=== PATIENT | female | born 1950 | race Caucasian/White ===

== ENCOUNTER 2017-09-12 14:28 | Observation (INO) | payer MEDICARE, BC ==
[2017-09-12] MEDS ORDERED: NS 0.9% 1000 ML* 1,000 ML IV ONE (14:33)
--- NOTE | 2017-09-12 14:47 | RAD ---
HISTORY: Neurological changes, code hameed. COMPARISONS: None TECHNIQUE: Multiple contiguous axial CT scans were obtained of the head without intravenous contrast. FINDINGS: HEMORRHAGE/INFARCT: There is no hemorrhage or acute infarct. MASSES/SHIFT: There is no mass or shift. EXTRA-AXIAL SPACES: There are no extra-axial fluid collections. SULCI AND VENTRICLES: The sulci and ventricles are normal in size and position for the patient's stated age. CEREBRUM: There are no focal parenchymal abnormalities. BRAINSTEM: There are no focal parenchymal abnormalities. CEREBELLUM: There are no focal parenchymal abnormalities. VESSELS: The vessels are grossly normal. PARANASAL SINUSES: The paranasal sinuses are clear. ORBITS: The orbits are unremarkable. BONES AND SOFT TISSUE: No bone or soft tissue abnormalities are noted. OTHER: None IMPRESSION: NO ACUTE INTRACRANIAL PATHOLOGY. PRELIMINARY FINDINGS WERE DISCUSSED WITH DR. LIANG IN THE EMERGENCY DEPARTMENT AT APPROXIMATELY 2:43 PM ON SEPTEMBER 12, 2017.
[2017-09-12] MEDS ORDERED: Alteplase* 100 MG VIAL ONE (14:57)
[2017-09-12 15:03] LABS: ABS Basophils 0 10^3/ul (0-0.2); ABS Eosinophils 0.1 10^3/ul (0-0.6); ABS Lymphocytes 0.9 10^3/ul (1.0-4.8); ABS Monocytes 0.4 10^3/ul (0-0.8); ABS Neutrophils 2.6 10^3/ul (1.5-7.7); ABS Nucleated RBC 0 10^3/ul; Eosinophil % 1.4 % (0-6); Hematocrit 43 % (35-47); Hemoglobin 14.5 g/dl (12.0-16.0); Lymphocyte % 23.2 % (25-47); Mean Corpuscular HGB Conc 34 g/dl (31-36); Mean Corpuscular Hemoglobin 30 pg (27-31); Mean Corpuscular Volume 90 fL (80-97); Mean Platelet Volume 9.3 um3 (7.4-10.4); Nucleated Red Blood Cells % 0; Platelet Count 163 10^3/ul (150-450); Red Blood Count 4.76 10^6/ul (4.0-5.4); Red Cell Distribution Width 13 % (10.5-15)
[2017-09-12 15:12] LABS: INR 0.94 (0.77-1.02)
[2017-09-12] MEDS ORDERED: Aspirin TAB* 325 MG PO ONE (15:13)
--- NOTE | 2017-09-12 15:28 | RAD ---
Indication: Neurologic changes. Single frontal view of the chest performed at 1515 hours was reviewed. Comparison is made with previous exam dated September 25, 2015. No mediastinal shift is noted. Heart is of normal size and configuration. Lung alaniz appear clear. IMPRESSION: NO ACTIVE CARDIOPULMONARY DISEASE IS NOTED.
[2017-09-12 15:33] LABS: Urine Appearance Clear; Urine Blood Negative (Negative); Urine Color Straw; Urine Ketones Trace (Negative); Urine Protein Negative (Negative); Urine Specific Gravity 1.008 (1.010-1.030); Urine Urobilinogen Negative (Negative)
--- NOTE | 2017-09-12 16:05 | RAD ---
HISTORY: Confusion, weakness, memory loss COMPARISONS: Head CT dated September 12, 2017 TECHNIQUE: The following sequences were obtained of the head: Sagittal T1-weighted images, axial T2-weighted images, axial FLAIR images, axial susceptibility weighted images, axial T1-weighted images. Additionally, axial diffusion-weighted images were obtained with calculated apparent diffusion coefficients. FINDINGS: HEMORRHAGE/INFARCT: There is no hemorrhage or acute infarct. MASSES/SHIFT: There is no mass or shift. EXTRA-AXIAL SPACES/MENINGES: There are no extra-axial fluid collections. SULCI AND VENTRICLES: The sulci and ventricles are normal in size and position for the patient's stated age. CEREBRUM: There are no focal parenchymal abnormalities. BRAINSTEM: There are no focal parenchymal abnormalities. CEREBELLUM: There are no focal parenchymal abnormalities. The cerebellar tonsils are normal in size and position. SELLA: The sella is normal. PINEAL: The pineal region is clear. CP ANGLE/TEMPORAL BONES: The labyrinthine structures are grossly normal. VESSELS: Normal flow-voids are noted within the visualized vertebral vasculature. DIFFUSION ABNORMALITIES: There are no diffusion abnormalities. PARANASAL SINUSES/MASTOIDS: There is a small mucous retention cyst of the left maxillary sinus. ORBITS: The orbits are unremarkable. BONES AND SOFT TISSUE: No bone or soft tissue abnormalities are noted. OTHER: None IMPRESSION: NORMAL BRAIN
[2017-09-12] MEDS ORDERED: Ondansetron INJ* 2 MG/ML VIAL IV PRN (16:22)
[2017-09-12] MEDS ORDERED: Acetaminophen TAB* 325 MG PO PRN (16:22)
[2017-09-12] MEDS ORDERED: Aspirin 81 mg CHEW TAB* 81 MG TAB.CHEW ONE (17:54)
--- NOTE | 2017-09-12 17:58 | ECHO ---
Patient: RD YOUNG [facility] Rec#: [id number] : 1950 Date: 09/12/2017 Age: 67y Height: 165.1 cm / 65.0 in Weight: 58.97 kg / 130.0 lbs Sex: F BSA: 1.65 Room#: -14 Admit Date#: 09/12/2017 Type: Inpatient Referring: Khoi Tolbert Reading: Jayant Neal MD Airplane Pilot Crop Dusting: Lorraine Collazo RDCS CC: Thu Pascual MD Transthoracic Echocardiogram Indication: TIA, amnesia BP: 151/75 HR: 63 Rhythm: NSR with PVCs Findings History: No known history. Technical Comments: The study quality is fair. Completed at 1730. Left Ventricle: The left ventricular chamber size is normal. There is no left ventricular hypertrophy. Global left ventricular wall motion and contractility are within normal limits. There is normal left ventricular systolic function. The estimated ejection fraction is 55-60%. There is no consistent Doppler evidence of clinically significant diastolic dysfunction. Left Atrium: The left atrium is mild to moderately dilated. Right Ventricle: The right ventricular cavity size is normal. The right ventricular global systolic function is normal. Right Atrium: The right atrium is mildly dilated. Interatrial septum appears intact without evidence of shunting. The bubble study is negative. A patent foramen ovale is not demonstrated with color Doppler and agitated contrast. Aortic Valve: The aortic valve is trileaflet. There is no evidence of aortic valve thickening. There is a trace of aortic regurgitation. There is no evidence of aortic stenosis. Mitral Valve: The mitral valve leaflets do not appear thickened. There is trace to mild mitral regurgitation. There is no evidence of mitral stenosis. Tricuspid Valve: The tricuspid valve leaflets are normal. There is trace to mild tricuspid regurgitation. The right ventricular systolic pressure is estimated at 26 mmHg. No pulmonary hypertension is noted. There is no tricuspid stenosis. Pulmonic Valve: The pulmonic valve appears normal. There is mild pulmonic regurgitation. There is no pulmonic stenosis. Pericardium: There is no significant pericardial effusion. A pericardial fat pad is visualized. Aorta: There is mild dilatation of the ascending aorta. There is no dilatation of the aortic arch. The aortic root is normal in size. Pulmonary Artery: The main pulmonary artery appears normal. Venous: The inferior vena cava appears normal in size. There is a greater than 50% respiratory change in the inferior vena cava dimension. Contrast: Normal saline was used as contrast for the bubble study. Images 1 and 2. Intravenous contrast was used to help determine presence of intracardiac shunting. Summary: There was not any prior study for comparison. Conclusions The estimated ejection fraction is 55-60%. There is normal left ventricular systolic function. The right atrium is mildly dilated. A patent foramen ovale is not demonstrated with color Doppler and agitated contrast. There is trace to mild mitral regurgitation. There is trace to mild tricuspid regurgitation. There is mild pulmonic regurgitation. Measurements Name Value Normal Range RVIDd (AP) 2D 2.7 cm (0.9 - 2.6) RVDdMajor (2D) 3.7 cm (2.2 - 4.4) RAd ISD 4CH 5 cm (3.4 - 4.9) RA (A4C)W 4.1 cm (2.9 - 4.6) IVSd (2D) 0.6 cm (0.6 - 1) LVPWd (2D) 0.7 cm (0.6 - 1) LVIDd (2D) 4.7 cm (3.6 - 5.4) LVIDs (2D) 3.7 cm - LV FS (2D) 21 % (25 - 45) Aortic Annulus 1.8 cm (1.4 - 2.6) Ao root diameter (2D) 3.2 cm (2.1 - 3.5) Ascending Ao 3.6 cm (2.1 - 3.4) Aortic arch 2.9 cm (1.8 - 3.4) LA dimension (AP) 2D 3.2 cm (2.3 - 3.8) LAd ISD 4CH 5.1 cm (2.9 - 5.3) LA ISD 4CH W 4.6 cm (2.5 - 4.5) Name Value Normal Range LA ESV SP 4CH (A/L) 65 ml - LA ESV SP 2CH (A/L) 55 ml - LA ESV BP (A/L) 70 ml - LA ESV BP (A/L) index 42 ml/m2 - LA ESV SP 4CH (MOD) 59 ml - LA ESV SP 2CH (MOD) 54 ml - Name Value Normal Range MV E-wave Vmax 0.63 m/sec - MV deceleration time 210.1 msec - MV A-wave Vmax 0.79 m/sec - MV E:A ratio 0.8 ratio - LV septal e' Vmax 0.07 m/sec - LV lateral e' Vmax 0.13 m/sec - LV E:e' septal ratio 9 ratio - LV E:e' lateral ratio 4.85 ratio - Name Value Normal Range AV Vmax 1.43 m/sec - AV VTI 30.96 cm - AV peak gradient 8.2 mmHg - AV mean gradient 4.52 mmHg - LVOT Vmax 1.3 m/sec - LVOT VTI 31.45 cm - LVOT peak gradient 6.64 mmHg - LVOT mean gradient 3.72 mmHg - RADHA Vmax 0.74 m/sec - Name Value Normal Range TR Vmax 2.4 m/sec - TR peak gradient 23 mmHg - RAP 3 mmHg - RVSP 26 mmHg - IVC diameter 2 cm - Name Value Normal Range PV Vmax 0.75 m/sec - PV peak gradient 2.25 mmHg - NY end-diastolic Vmax 0.92 m/sec -
--- NOTE | 2017-09-12 18:22 | CONS ---
CONSULTATION REPORT: DATE OF CONSULT: 09/12/17 PATIENT OF: Dr. Araiza and Dr. Thu Pascual and Dr. Kaiser Alonzo in the ER. HISTORY OF PRESENT ILLNESS: This is a 67-year-old healthy woman who is visiting her at [facility] today when she developed short-term memory loss and was brought to the emergency room. I saw her initially at 3 o'clock and this happened as early as about 10 when she showed up to [facility]. There has not been an issue with difficulty with word finding or speech or fluency, but the issue is of short- term memory with long-term memory intact. It is unclear whether it is improving at this point or not, but there are some subtle signs that it might be. She has had no prior strokes. PAST MEDICAL HISTORY: She is in good general health other than osteoporosis. PAST SURGICAL HISTORY: She has no known surgeries. MEDICATIONS: She is on: 1. Calcium. 2. Alendronate. We do not know the dose currently. ALLERGIES: She has no clear allergies. SOCIAL HISTORY: She does not smoke, drink, or take drugs. She lives by herself at this point. REVIEW OF SYSTEMS: Negative in all 14 spheres, but is somewhat limited because she would remember things from prior days, but not necessarily this afternoon or earlier today. PHYSICAL EXAMINATION: On exam, temperature 98.4, pulse 71, respirations 17, blood pressure 151/75. She is alert. She knows she is in the hospital. She recognized me through my taking care of her . She knew my name. She knew the date; however, she had 0/3 memory at 5 minutes and when I was telling her about transient global amnesia, she had good understanding and comprehension of what I was telling her and asked appropriate questions, but then she would immediately ask, she did not recall me talking about transient global amnesia. She could follow 3-step commands. When I came back into the room, she did not initially remember seeing me, but then later on she remembered to the hospitalist that she had seen me, so her memory seems to be possibly improving. Cranial nerves II through XII were intact. Fundi were benign. Motor exam revealed normal tone, strength, and coordination. Sensation intact to light touch. Reflexes were 1+ and equal downgoing toes. Neck was suppler. Chest: Clear. Cardiovascular: Regular rate and rhythm. Abdomen: Soft. Positive bowel sounds. DIAGNOSTIC STUDIES/LABORATORY DATA: Her CT scan was reviewed and was normal. We just obtained an MRI scan, which apparently is back, which is read as normal and I will be reviewing this, and her MRI scan does not show any acute stroke and does not show any significant white matter disease and looks like a normal brain. Lab studies include normal CBC, INR, PTT, CMP. Hemoglobin A1c was 5.4, LDL was 92. UA was normal. She will also be getting an echo, an EEG, and carotid Dopplers. 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 This may be improving at this point and she should be on a baby aspirin a day. It is unlikely this would machine lay out worker to be seizures, but it is possible. I would not treat with anticonvulsants if her EEG is normal. I discussed with the hospitalist and her, Dr. Werner, who she also knows, will be coming on service beginning in about an hour. Thank you for sharing her case. [id number]/[facility] #: [id number] LISA
--- NOTE | 2017-09-12 19:10 | HP ---
AMENDED REPORT NOW INCLUDES COSIGNER DESIGNATION - ESIGNED BEFORE ADJUSTMENT CC: Dr. Thu Pascual; Dr. Sascha Lugo * ADMISSION HISTORY AND PHYSICAL: DATE OF ADMISSION: 09/12/17 PRIMARY CARE PROVIDER: Thu Pascual MD MY ATTENDING WHILE IN THE HOSPITAL: Emre Heck MD * (DICTATED BY MICH COLLIER) CONSULTING NEUROLOGIST: Sascha Lugo MD CHIEF COMPLAINT: Memory loss x4 hours. HISTORY OF PRESENT ILLNESS: Ms. Vega is a 67-year-old female who has no pertinent past medical history who was visiting her at [facility] this morning and according to reports was fine when she arrived at 10:30 a.m., at her baseline, and then around 2 p.m. was found wandering around confused. There is no collateral information for the time in between. The patient upon arrival had very poor short-term memory, not remembering where she was the day before, not remembering what she had for breakfast, she remembers being told she was at [facility]. She does not know whether she had the dog with her. This is very concerning to her. She remembers her [id number] might have been there, but she does not remember whether she left or not. The patient denies any recent illnesses, fevers, chills, nausea, vomiting, chest pain, shortness of breath, palpitations. The patient initially when she was interviewed remember her name, the year, the president, and the season, knew that it was unseasonably cold first time of year, but could not remember what time of year it was. The patient did not remember just being interviewed with the neurologist. She believes she had been interviewed by neurologist, Dr. Lugo, at [facility], he only had been in there minutes before. The patient was seen before and after an MRI scan and did not remember speaking to this author though I did seem familiar to her. The patient upon second examination was able to remember that was August. The patient was able to remember all of her past medical history. The patient is unable to describe on her most recent unfragmented memories from. The patient has no pain. The patient has no other complaints at all. Due to the patient's amnesia and concern for stroke or seizure, we were asked to evaluate for admission. PAST MEDICAL HISTORY: Osteoporosis. PAST SURGICAL HISTORY: Tonsillectomy. MEDICATIONS: Vitamin D unknown dose. ALLERGIES: No known drug allergies. FAMILY HISTORY: The patient's father of an MO at 54. The patient's mother is alive at 96 and has dementia. The patient is otherwise healthy. The patient has a sister with rheumatoid arthritis and brother who has seizure secondary to a traumatic brain injury and a sister with high blood pressure and another sister has no health problems. The patient's son has a traumatic brain injury. The patient's daughter is healthy. SOCIAL HISTORY: The patient smoked briefly in her youth. The patient drank alcohol occasionally throughout her life, never abused it. The patient denies illicit drug use. 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 The patient is . The patient's has neurological disorder. The patient has 2 children both of them live in [place], [place]. The patient's daughter, Miladys Tay, will be her healthcare proxy. REVIEW OF SYSTEMS: A 14-point review of systems was reviewed and is entirely negative except as stated above. PHYSICAL EXAMINATION GENERAL: The patient is a 67-year-old female who appears younger than stated age and sitting comfortably in bed, in no acute distress. VITAL SIGNS: Upon arrival to the emergency department, temperature 98.4, pulse rate 69, respiratory rate 18, oxygen saturation 100% on room air, blood pressure 161/95. HEENT: Head normocephalic, atraumatic. Sclerae anicteric. No conjunctival injection. Nasal mucosa is moist. Oral mucosa moist. No pharyngeal erythema, discharge, or exudate. NECK: Supple, nontender. No lymphadenopathy. No carotid bruits auscultated. No JVD. RESPIRATORY: Clear to auscultation bilaterally. No wheezes, rales, or rhonchi. Good air exchange bilaterally. CARDIAC: Regular rate and rhythm. No clicks, murmurs, gallops, or rubs. Pulses are 2+ in the bilateral dorsalis pedis, posterior tibialis, and radial areas. ABDOMEN: Soft, nontender, nondistended. Bowel sounds present and normoactive in all 4 quadrants. No hepatosplenomegaly. No abdominal bruits auscultated. GENITOURINARY: No suprapubic tenderness or CVA tenderness. NEUROLOGIC: Cranial nerves II through XII intact. Pupils equal, round, and reactive to light. Strength 5/5 in bilateral upper and lower extremities distally and proximally. Sensation intact to light touch in the bilateral upper and lower extremities distally and proximally. Reflexes 2+ in the bilateral upper extremities and lower extremities and the biceps, patellar, and Achilles areas Babinski is downgoing bilaterally. Cerebellar testing including ofob-mz-[id number] and [id number] performed without difficulty. The patient is alert and oriented to self, year, season intermittently, oriented to month, unable to state the day. Note the patient has poor short-term memory. No deficits in long-term memory. No difficulty with word finding. PSYCHIATRIC: The patient is pleasant and cooperative, but somewhat apprehensive about her medical condition. SKIN: Clean, dry, and intact. No rash. LABORATORY DATA: White blood cell count 4.0, hemoglobin 14.5, hematocrit 43, and platelet count 163. INR 0.94, APTT 30.2. Sodium 140, potassium 3.8, chloride 106, carbon dioxide 25, anion gap 9, BUN 17, creatinine 0.81, BUN to creatinine ratio 21.0, glucose 98. Hemoglobin A1c 5.5. Lactic acid 1.4, calcium 9.5. Bilirubin 0.8, AST 26, ALT 22, alkaline phosphatase 65. Troponin I 0.00. Total protein 6.8, albumin 4.2, triglycerides 47, cholesterol 163, LDL cholesterol 92, HDL cholesterol 61.3. Urine shows specific gravity 1.008 and trace ketones. No other significant findings. STUDIES DONE WHILE IN THE HOSPITAL: Brain CT read as no acute intracranial pathology. Chest x-ray read as no active cardiopulmonary disease. Electrocardiogram shows normal sinus rhythm, early repolarization at V2, V3. No other abnormalities. Normal axis. Rate of 68, QTc of 456. Normal axis. No prior studies to compare. Brain MRI from 09/12/17 read as normal brain. ASSESSMENT AND PLAN/IMPRESSION: The patient is a 67-year-old female with no pertinent past medical history who presents with several hours of short-term memory loss, which is persistent, likely representing transient global amnesia, which is improving. The etiology of this is unknown and the differential includes seizure and cerebral vascular accident. The patient will be admitted to the hospital for testing and monitoring on telemetry. 1. Transient global amnesia. I appreciate neurological input. The patient has no neurological deficits except for short-term memory loss, which is improving. The patient had MRI and CT which have no acute findings. The patient's electrocardiogram is entirely normal. Chest x-ray is normal. The patient has a carotid ultrasound and a transthoracic echocardiogram pending. The patient will be monitored on telemetry. The patient's lipid panel and hemoglobin A1c are noncontributory. The patient's memory loss appears to be improving, but her ability to perform short-term memory is still profoundly decreased. The patient has an EEG pending. No recommendation for antiepileptic drugs at this time unless there is a positive EEG. The patient will be started on aspirin 81 mg p.o. daily. The patient received aspirin while in the emergency department. 2. Osteoporosis. Continue followup outpatient. 3. Fluids, electrolytes, and nutrition. The patient will have a regular unrestricted diet after she passes a swallow evaluation. The patient will not have fluids at this time. 4. DVT prophylaxis: The patient is moderate risk due to her age. The patient will have SCDs and encouraged to ambulate. 5. Code status: The patient would like to be a full code. The patient's surrogate decision maker is her daughter, Miladys Tay, as above. 6. Disposition: The patient is admitted in observation to telemetry. TIME SPENT: Approximately 60 minutes was spent on this admission, 30 of which was spent [id number] with the patient obtaining history and physical and discussing the treatment plan. This plan has been discussed with my attending, Dr. Emre Heck and consulting neurologist, Dr. Sascha Lugo. MICH HERNANDEZ [id number]/[facility] #: [id number] LISA
--- NOTE | 2017-09-12 21:11 | ED ---
Yg Dominique Thomas, scribed for Dameon Alonzo MD on 09/12/17 at 1453 . Neurological HPI - HPI Summary HPI Summary: The patient is a 67 year old female brought in by ambulance. The patient was leaving [facility] after visiting her for four hours, and staff members noted her to be wandering in and out of the facility. The patient does not remember any of this. When I examine her in the emergency department, she is disoriented to month and day. She denies headache, nausea, vomiting, aphasia, focal weakness, or focal numbness. She is not anxious. She denies being on any medication. - History of Current Complaint Stated Complaint: STROKE LIKE SYMPTOMS Time Seen by Provider: 09/12/17 14:32 Hx Obtained From: Patient Onset/Duration: Started hours ago, Still Present Timing: Constant Current Severity: Moderate Pain Intensity: 0 Pain Scale Used: 0-10 Numeric Character: Other: - Amnesia; NEGATIVE: headache, nausea, vomiting, aphasia, focal weakness, numbness, anxiety Aggravating: Nothing Alleviating: Nothing - Allergy/Home Medications Allergies/Adverse Reactions: Allergies Allergy/AdvReac Type Severity Reaction Status Date / Time No Known Allergies Allergy Verified 09/25/15 17:40 PMH/Surg Hx/FS Hx/Imm Hx Musculoskeletal History: Denies: Hx Rheumatoid Arthritis - SISTER, Hx Osteoporosis Sensory History: Denies: Hx Deafness Opthamlomology History: Denies: Hx Legally Blind EENT History: Denies: Hx Deafness - Cancer History Hx Chemotherapy: No Hx Radiation Therapy: No Infectious Disease History: Denies: History Other Infectious Disease, Traveled Outside the [place] in Last 30 Days - Family History Known Family History: Positive: Other - Patient denies relevant FHx - Social History Alcohol Use: Occasionally Substance Use Type: Reports: None Hx Tobacco Use: No Smoking Status (MU): Never Smoked Tobacco Review of Systems Negative: Vomiting, Nausea Neurological: Negative - aphasia, focal weakness, numbness Negative: Headache Negative: Anxious All Other Systems Reviewed And Are Negative: Yes Physical Exam - Summary Physical Exam Summary: Appearance: The patient is well-nourished in no acute distress and in no acute pain. Skin: The skin is warm and dry and skin color reflects adequate perfusion. HEENT: The head is normocephalic and atraumatic. The pupils are equal and reactive. The conjunctivae are clear and without drainage. Nares are patent and without drainage. Mouth reveals moist mucous membranes and the throat is without erythema and exudate. The external ears are intact. The ear canals are patent and without drainage. The tympanic membranes are intact. Neck: the neck is supple with full range of motion and non-tender. There are no carotid bruits. There is no neck vein distension. Respiratory: Chest is non-tender. Lungs are clear to auscultation and breath sounds are symmetrical and equal. Cardiovascular: Heart is regular rate and rhythm. There is no murmur or rub auscultated. There is no peripheral edema and pulses are symmetrical and equal. Abdomen: The abdomen is soft and non-tender. There are normal bowel sounds heard in all four quadrants and there is no organomegaly palpated. Musculoskeletal: There is no back tenderness noted. Extremities are non-tender with full range of motion. There is good capillary refill. There is no peripheral edema or calf tenderness elicited. Neurological: Patient is alert. There are no focal neurological deficits. She has short term memory loss. The patient has symmetrical motor strength in all four extremities. Cranial nerves are grossly intact. Deep tendon reflexes are symmetrical and equal in all four extremities. Psychiatric: The patient has an appropriate affect and does not exhibit any anxiety or depression. Triage Information Reviewed: Yes Vital Signs On Initial Exam: Initial Vitals Pulse Resp BP Pulse Ox 71 18 151/75 99 09/12/17 14:33 09/12/17 14:33 09/12/17 14:33 09/12/17 14:33 Vital Signs Reviewed: Yes Diagnostics - Vital Signs Vital Signs Temp Pulse Resp BP Pulse Ox 09/12/17 16:30 73 158/75 99 09/12/17 16:13 73 99 09/12/17 16:11 140/83 09/12/17 15:33 71 19 99 09/12/17 15:30 73 22 140/80 100 09/12/17 15:07 71 17 100 09/12/17 15:05 151/75 09/12/17 14:45 98.4 F 69 18 161/95 100 09/12/17 14:33 71 18 151/75 99 - Laboratory Lab Results: Lab Results 09/12/17 09/12/17 09/12/17 Range/Units 14:53 14:53 14:53 WBC 4.0 (3.5-10.8) 10^3/ul RBC 4.76 (4.0-5.4) 10^6/ul Hgb 14.5 (12.0-16.0) g/dl Hct 43 (35-47) % MCV 90 (80-97) fL MCH 30 (27-31) pg MCHC 34 (31-36) g/dl RDW 13 (10.5-15) % Plt Count 163 (150-450) 10^3/ul MPV 9.3 (7.4-10.4) um3 Neut % (Auto) 65.1 (38-83) % Lymph % (Auto) 23.2 L (25-47) % [place] % (Auto) 9.6 H (0-7) % Eos % (Auto) 1.4 (0-6) % Baso % (Auto) 0.7 (0-2) % Absolute Neuts (auto) 2.6 (1.5-7.7) 10^3/ul Absolute Lymphs (auto) 0.9 L (1.0-4.8) 10^3/ul Absolute Monos (auto) 0.4 (0-0.8) 10^3/ul Absolute Eos (auto) 0.1 (0-0.6) 10^3/ul Absolute Basos (auto) 0 (0-0.2) 10^3/ul Absolute Nucleated RBC 0 10^3/ul Nucleated RBC % 0 INR (Anticoag Therapy) 0.94 (0.77-1.02) APTT 30.2 (26.0-36.3) seconds Sodium 140 (139-145) mmol/L Potassium 3.8 (3.5-5.0) mmol/L Chloride 106 (101-111) mmol/L Carbon Dioxide 25 (22-32) mmol/L Anion Gap 9 (2-11) mmol/L BUN 17 (6-24) mg/dL Creatinine 0.81 (0.51-0.95) mg/dL Est GFR ( Amer) 91.3 (>60) Est GFR (Non-Af Amer) 71.0 (>60) BUN/Creatinine Ratio 21.0 H (8-20) Glucose 98 (70-100) mg/dL Hemoglobin A1c (4.0-5.6) % Lactic Acid (0.5-2.0) mmol/L Calcium 9.5 (8.6-10.3) mg/dL Total Bilirubin 0.80 (0.2-1.0) mg/dL AST 26 (13-39) U/L ALT 22 (7-52) U/L Alkaline Phosphatase 65 (34-104) U/L Troponin I 0.00 (<0.04) ng/mL Total Protein 6.8 (6.4-8.9) g/dL Albumin 4.2 (3.2-5.2) g/dL Globulin 2.6 (2-4) g/dL Albumin/Globulin Ratio 1.6 (1-3) Triglycerides 47 mg/dL Cholesterol 163 mg/dL LDL Cholesterol 92 mg/dL HDL Cholesterol 61.3 mg/dL Urine Color Urine Appearance Urine pH (5-9) Ur Specific [place] (1.010-1.030) Urine Protein (Negative) Urine Ketones (Negative) Urine Blood (Negative) Urine Nitrate (Negative) Urine Bilirubin (Negative) Urine Urobilinogen (Negative) Ur Leukocyte Esterase (Negative) Urine Glucose (Negative) Blood Type Antibody Screen 09/12/17 09/12/17 09/12/17 Range/Units 14:53 14:53 14:53 WBC (3.5-10.8) 10^3/ul RBC (4.0-5.4) 10^6/ul Hgb (12.0-16.0) g/dl Hct (35-47) % MCV (80-97) fL MCH (27-31) pg MCHC (31-36) g/dl RDW (10.5-15) % Plt Count (150-450) 10^3/ul MPV (7.4-10.4) um3 Neut % (Auto) (38-83) % Lymph % (Auto) (25-47) % [place] % (Auto) (0-7) % Eos % (Auto) (0-6) % Baso % (Auto) (0-2) % Absolute Neuts (auto) (1.5-7.7) 10^3/ul Absolute Lymphs (auto) (1.0-4.8) 10^3/ul Absolute Monos (auto) (0-0.8) 10^3/ul Absolute Eos (auto) (0-0.6) 10^3/ul Absolute Basos (auto) (0-0.2) 10^3/ul Absolute Nucleated RBC 10^3/ul Nucleated RBC % INR (Anticoag Therapy) (0.77-1.02) APTT (26.0-36.3) seconds Sodium (139-145) mmol/L Potassium (3.5-5.0) mmol/L Chloride (101-111) mmol/L Carbon Dioxide (22-32) mmol/L Anion Gap (2-11) mmol/L BUN (6-24) mg/dL Creatinine (0.51-0.95) mg/dL Est GFR ( Amer) (>60) Est GFR (Non-Af Amer) (>60) BUN/Creatinine Ratio (8-20) Glucose (70-100) mg/dL Hemoglobin A1c 5.5 (4.0-5.6) % Lactic Acid 1.4 (0.5-2.0) mmol/L Calcium (8.6-10.3) mg/dL Total Bilirubin (0.2-1.0) mg/dL AST (13-39) U/L ALT (7-52) U/L Alkaline Phosphatase (34-104) U/L Troponin I (<0.04) ng/mL Total Protein (6.4-8.9) g/dL Albumin (3.2-5.2) g/dL Globulin (2-4) g/dL Albumin/Globulin Ratio (1-3) Triglycerides mg/dL Cholesterol mg/dL LDL Cholesterol mg/dL HDL Cholesterol mg/dL Urine Color Urine Appearance Urine pH (5-9) Ur Specific [place] (1.010-1.030) Urine Protein (Negative) Urine Ketones (Negative) Urine Blood (Negative) Urine Nitrate (Negative) Urine Bilirubin (Negative) Urine Urobilinogen (Negative) Ur Leukocyte Esterase (Negative) Urine Glucose (Negative) Blood Type A Positive Antibody Screen Negative 09/12/17 Range/Units 15:21 WBC (3.5-10.8) 10^3/ul RBC (4.0-5.4) 10^6/ul Hgb (12.0-16.0) g/dl Hct (35-47) % MCV (80-97) fL MCH (27-31) pg MCHC (31-36) g/dl RDW (10.5-15) % Plt Count (150-450) 10^3/ul MPV (7.4-10.4) um3 Neut % (Auto) (38-83) % Lymph % (Auto) (25-47) % [place] % (Auto) (0-7) % Eos % (Auto) (0-6) % Baso % (Auto) (0-2) % Absolute Neuts (auto) (1.5-7.7) 10^3/ul Absolute Lymphs (auto) (1.0-4.8) 10^3/ul Absolute Monos (auto) (0-0.8) 10^3/ul Absolute Eos (auto) (0-0.6) 10^3/ul Absolute Basos (auto) (0-0.2) 10^3/ul Absolute Nucleated RBC 10^3/ul Nucleated RBC % INR (Anticoag Therapy) (0.77-1.02) APTT (26.0-36.3) seconds Sodium (139-145) mmol/L Potassium (3.5-5.0) mmol/L Chloride (101-111) mmol/L Carbon Dioxide (22-32) mmol/L Anion Gap (2-11) mmol/L BUN (6-24) mg/dL Creatinine (0.51-0.95) mg/dL Est GFR ( Amer) (>60) Est GFR (Non-Af Amer) (>60) BUN/Creatinine Ratio (8-20) Glucose (70-100) mg/dL Hemoglobin A1c (4.0-5.6) % Lactic Acid (0.5-2.0) mmol/L Calcium (8.6-10.3) mg/dL Total Bilirubin (0.2-1.0) mg/dL AST (13-39) U/L ALT (7-52) U/L Alkaline Phosphatase (34-104) U/L Troponin I (<0.04) ng/mL Total Protein (6.4-8.9) g/dL Albumin (3.2-5.2) g/dL Globulin (2-4) g/dL Albumin/Globulin Ratio (1-3) Triglycerides mg/dL Cholesterol mg/dL LDL Cholesterol mg/dL HDL Cholesterol mg/dL Urine Color Straw Urine Appearance Clear Urine pH 6.0 (5-9) Ur Specific [place] 1.008 L (1.010-1.030) Urine Protein Negative (Negative) Urine Ketones Trace A (Negative) Urine Blood Negative (Negative) Urine Nitrate Negative (Negative) Urine Bilirubin Negative (Negative) Urine Urobilinogen Negative (Negative) Ur Leukocyte Esterase Negative (Negative) Urine Glucose Negative (Negative) Blood Type Antibody Screen Result Diagrams: 09/12/17 14:53 09/12/17 14:53 Lab Statement: Any lab studies that have been ordered have been reviewed, and results considered in the medical decision making process. - Radiology CXR Xray Interpretation: No Acute Changes - IMPRESSION: NO ACTIVE CARDIOPULMONARY DISEASE IS NOTED. Dr. Alonzo has reviewed this report. Radiology Interpretation Completed By: Radiologist - CT CT Brain CT Interpretation: No Acute Changes - IMPRESSION: No acute pathology. Dr. Alonzo has reviewed this report. CT Interpretation Completed By: Radiologist - EKG 14:47 Cardiac Rate: NL EKG Rhythm: Sinus Rhythm - at 68 BPM - Additional Comments Diagnostic Additional Comments: MRI BRAIN W/O Interpreted by radiologist. IMPRESSION: NORMAL BRAIN Dr. Alonzo has reviewed this report. Course/Dx - Course Course Of Treatment: I evaluated the patient by the charge nurse's station at 14 :30. A Code Estrella was called at 14:32. The patient was immediately sent to CT. My initial impression is that she has a TGA but she is getting a full W/U, seen by the neurologist and admitted to the hospitalist service. - Diagnoses Provider Diagnoses: Transient global amnesia During the Visit The Following Alert/Code Occurred: Ronald Bales - called at 14:32 - Physician Notifications Discussed Care Of Patient With: Sascha Lugo Instructed by Provider To: Will See In ED Discharge - Sign-Out/Discharge Documenting (check all that apply): Discharge - Discharge Plan Condition: Stable Disposition: ADMITTED TO [facility] - Billing Disposition and Condition Condition: STABLE [place] [facility] [place] The documentation as recorded by the Yg arellano Thomas accurately reflects the service I personally performed and the decisions made by me, Dameon Alonzo MD.
--- NOTE | 2017-09-13 08:32 | EEG ---
ELECTROENCEPHALOGRAPHY: DATE OF STUDY: 09/12/17 CLINICAL PROBLEM: Edyta Vega is a 67-year-old woman who was at [facility] earlier today to visit her and meet with some sales department clerk. The staff noted her to be confused and not making sense and called the ambulance. She has no memory of being in [facility] arriving in the ambulance. She has a limited memory of her time in the emergency room this afternoon. She indicates she has never had anything like this before. This history is per field sampling technician report. REPORT: This is a 16-channel EEG. In the beginning of the record, there was a posterior dominant 11 Hz alpha rhythm, which was symmetric and attenuated with eye opening. As the record continued, the background rhythm remained symmetric. The patient appeared to remain in the awake state. There is no significant asymmetry of background rhythm, no evidence of sharp or spike wave activity. CLINICAL IMPRESSION: This was a normal awake EEG. There is no evidence of epileptiform activity. [id number]/[facility] #: [id number] MTDD
[2017-09-13] MEDS ORDERED: Aspirin 81 mg CHEW TAB* 81 MG TAB.CHEW PO SCH (09:00)
--- NOTE | 2017-09-13 12:53 | PN ---
CC: Dr. Pascual; Dr. Lugo. * FOLLOWUP NOTE: DATE OF SERVICE: 09/13/17 HISTORY OF PRESENT ILLNESS: Ms. Edyta Vega was admitted to [facility] last evening after an episode of amnesia. She had taken her sister-in- law to the bus stop and does not remember doing so yesterday morning. She then went to [facility] and met with her and a medical laboratory manager and does not recollect this meeting at all. She was then noted to have abnormal behavior and was brought to the emergency room. In the emergency room, Dr. Lugo reports that she recognized him as soon as he walked in, but after he left the room for 10 minutes and came back, she had no memory of him being there. She now remembers seeing Dr. Lugo, but it is somewhat hazy. She feels back to normal and witnesses in the room indicate that she is back to her normal self. She has never had any episodes like this in the past. There has been stress with caregiving with her , and there was more stress when he was in a different retirement about 2 years ago. He is now at [facility]. She cannot remember the discussion with the medical laboratory manager and so she is unclear if this was a particular stressful event for her. She feels back to herself. No vision loss, numbness, weakness, problem with legs, change in coordination or gait. PHYSICAL EXAMINATION: On examination, her most recent vitals include a temperature of 97.8 degrees Fahrenheit, pulse was 70, respiratory rate 16, saturation was 97% and blood pressure was 108/69. She had a regular cardiac rhythm. Her lungs were clear to auscultation. There was no evidence of peripheral edema. She had good peripheral pulses. She was awake, alert, articulate. She knew where she was, the date, the president, she remembered 3 words initially and on recall, she was able to name months forward and backwards without difficulty, performed serial sevens with no mistakes. She had normal language function. Her pupils were equal and responsive to light. Her fundi were flat. She had full extraocular movements with no nystagmus, full alaniz to confrontation. Her facial expression, sensation, hearing were equal. Palate was upgoing. Tongue was midline. The sternocleidomastoid and trapezius were 5/5 in strength. There was normal bulk and tone. No pronator drift. Full strength in the upper and lower extremities with normal finger-to- nose and [id number] movements. She did have loss of vibration sensation at the toes, decreased by about 20 seconds, 10 at the ankles. There was no asymmetries or length-dependent loss in pinprick, cold or light touch. Her reflexes were 2+ and symmetric with the exception at the ankles that were 1+ on the left, absent at the right. Toes were downgoing. Her Romberg was negative. Her tandem gait was minimally wobbly. She could walk on her heels and her toes. DIAGNOSTIC STUDIES/LABORATORY DATA: Includes EEG which showed no epileptiform activity, CT and MRI of the brain, which showed no significant changes. MRI brain was read as normal. On my direct review, there was minimal periventricular changes. Echocardiogram showed a normal ejection fraction, her right atrium was mildly dilated. There was no PFO. There was trace to mild valve changes, but no cardioembolic source for emboli. See report per details. She is being monitored on Holter monitor and carotid Dopplers are pending. Her CBC on admission showed no elevation in white count. There was a slight increase in monos percentage at 9.6. Her metabolic panel showed an elevated BUN and creatinine ratio at 21. Lipid profile showed normal cholesterol with LDL of 92, HDL 61.3. Her urinalysis showed a slightly low specific gravity and trace ketones. She had a chest x-ray, which showed no active cardiopulmonary disease. IMPRESSION: Ms. Edyta Vega is a 67-year-old woman with minimal past medical history who presented to the emergency room with an episode of amnesia. Her workup today has been negative for differential diagnosis of seizure, transient ischemic attack, stroke. Her history and return to normal neurologic status is all consistent with transient global amnesia. Extensive period of time was spent providing education regarding transient global amnesia, different triggers that could be good stress or bad stress, differential diagnosis, workup to date. TIME SPENT: Over an hour was spent in direct [id number] patient care, over 50 % of the time was spent in education and counseling and all questions were answered. We talked about the stress that she has been under and the fact that counseling may be helpful as well as making sure she schedules time to take care of herself. She will need to talk to the medical laboratory manager to find out what was discussed. This may have been a particular trigger, and I have suggested having somebody with her when she has this conversation. Her daughter is on the way to provide further support. We will await carotid Dopplers, and as long as she is stable, we will plan discharge this afternoon with followup with Dr. Lugo in the next approximately 4 weeks. [id number]/[facility] #: [id number] LISA
[2017-09-13 15:42] VITALS: BP 147/75
--- NOTE | 2017-09-13 20:29 | DS ---
CC: Dr. Pascual; Dr. Lugo; Dr. Werner DISCHARGE SUMMARY: DATE OF ADMISSION: 09/12/17 DATE OF DISCHARGE: 09/13/17 PRIMARY CARE PROVIDER: Dr. Pascual. DISCHARGE DIAGNOSIS: Problems with memory due to likely transient global amnesia SECONDARY DIAGNOSIS: Osteoporosis. MEDICATIONS: Vitamin D as previously taken daily. LABORATORY DATA AND STUDIES PERFORMED DURING THE HOSPITAL STAY: Included: The patient's hemoglobin A1c was noted to be 5.5. The patient's LDL was 92. Remaining laboratory data unchanged from admissi on. The patient's EEG on 09/13/17, clinical impression: "Normal awake EEG. There was no evidence of epi leptiform abnormality." Brain MRI obtained on 09/12/17, impression: "Normal brain." Transesophageal echocardiogram obtained on 09/12/17 showed no evidence of PFO. EF of 55% to 60% with left ventricular function. There was trace to mild mitral regurgitation and trace to mild tricuspid regurgitation and mild pulmonic regurgitation. CONSULTATIONS DURING THE HOSPITAL STAY: Included Neurology, Dr. Lugo and Dr. Werner. HOSPITALIZATION COURSE: Edyta Vega is a 67-year-old female who had a meeting with her 's korina martin on 09/12/17, during which she started behaving strangely and she started having problems with solomon chan. For full details of presentation, please see history and physical dictated by Khoi Araiza on 09/12/17. Shortly, the patient was diagnosed with likely transient global amnesia and placed on o vernight observation on telemetry monitored bed. Her memory was back to baseline by the time of disc harge and she was neurologically intact by the time of discharge. At this point, the patient is bein g discharged with a likely diagnosis of transient global amnesia. Unfortunately, the carotid Doppler studies were unable to be performed by the day of discharge and the patient is recommended to have c arotid Doppler studies to rule out stenosis done as an outpatient. FOLLOWUP: At discharge, the patient is recommended to follow up with Dr. Pascual in approximately 4 t o 7 days. Follow up with Dr. Lugo in approximately 4 weeks. Please note that this is a short summary of the patient's hospitalization. Please refer to further [facility] records for details. [id number]/[facility] #: [id number]
== END 2017-09-13 16:12 | disposition home or self-care (01) ==
LOC: ED 14:28 → MEDTELE 16:58
PROVIDERS: ADMIT Internal Medicine; ATTEND Internal Medicine
DX: R41.3 Other amnesia (principal); M81.0 Age-related osteoporosis without current pathological fracture
CPT/HCPCS: 36415; 70450; 70551; 71045; 80053; 80061; 81003; 83036; 83605; 84484; 85025; 85610; 85730; 86850; 86900; 86901; 93005; 93306; 95816; 96361; 96374; 99284; A9270-GY; G0378; J2997

== ENCOUNTER 2017-11-06 11:23 | Emergency (ER) | payer MEDICARE, BC ==
[2017-11-06 12:34] VITALS: BP 136/76
--- NOTE | 2017-11-06 12:40 | UC ---
Lower Extremity/Ankle HPI - HPI Summary HPI Summary: Awoke with left lower leg pain, no injury seems a little better at triage assessment - History of Current Complaint Chief Complaint: UCLowerExtremity Stated Complaint: LEFT LEG PAIN Time Seen by Provider: 11/06/17 12:32 Hx Obtained From: Patient ?: No Onset/Duration: Sudden Onset, Lasting Days - 1, Still Present Severity Initially: Moderate Severity Currently: Mild Aggravating Factor(s): Standing Able to Bear Weight: Yes - Allergies/Home Medications Allergies/Adverse Reactions: Allergies Allergy/AdvReac Type Severity Reaction Status Date / Time No Known Allergies Allergy Verified 11/06/17 12:34 PMH/Surg Hx/FS Hx/Imm Hx Previously Healthy: Yes - Surgical History Surgical History: Yes Surgery Procedure, Year, and Place: nasal reconstruction. tonsils. breast biopsy - Family History Known Family History: Positive: Other - Patient denies relevant FHx - Social History Occupation: Retired Lives: With Family Alcohol Use: Occasionally Substance Use Type: None Smoking Status (MU): Never Smoked Tobacco Type: Cigarettes When Did the Patient Quit Smoking/Using Tobacco: smoked in youth Review of Systems Constitutional: Negative Skin: Negative Eyes: Negative ENT: Negative Respiratory: Negative Cardiovascular: Negative Gastrointestinal: Negative Genitourinary: Negative Motor: Negative Neurovascular: Negative Musculoskeletal: Myalgia - posterior left calf and knee pain Neurological: Negative Psychological: Negative Is Patient Immunocompromised?: No All Other Systems Reviewed And Are Negative: Yes Physical Exam Triage Information Reviewed: Yes Appearance: Well-Appearing, No Pain Distress, Well-Nourished Vital Signs: Initial Vital Signs Temp 97.8 F 11/06/17 12:32 Pulse 62 11/06/17 12:32 Resp 14 11/06/17 12:32 BP 136/76 11/06/17 12:32 Pulse Ox 100 11/06/17 12:32 Vital Signs Reviewed: Yes Eye Exam: Normal Eyes: Positive: Conjunctiva Clear ENT Exam: Normal ENT: Positive: Normal ENT inspection, Hearing grossly normal. Negative: Trismus , Muffled voice, Hoarse voice Dental Exam: Normal Neck exam: Normal Neck: Positive: Supple, Nontender Respiratory Exam: Normal Respiratory: Positive: Chest non-tender, No respiratory distress, No accessory muscle use Cardiovascular Exam: Normal Cardiovascular: Positive: RRR, Pulses Normal, Brisk Capillary Refill Musculoskeletal Exam: Normal Musculoskeletal: Positive: Strength Intact, ROM Intact, No Edema Neurological Exam: Normal Neurological: Positive: Alert, Muscle Tone Normal Psychological Exam: Normal Skin Exam: Normal Lower Extremity Course/Dx - Course Course Of Treatment: nsaids, gental exercises, heat/cold for your comfort, follow with pcp prn - Differential Dx/Diagnosis Provider Diagnoses: bakers cyst left knee Discharge - Sign-Out/Discharge Documenting (check all that apply): Discharge/Admit/Transfer - Discharge Plan Condition: Stable Disposition: HOME Patient Education Materials: Ibuprofen (By mouth), Bakers Cyst (ED), Warm Compress or Soak (ED) Referrals: Thu Pascual MD [Primary Care Provider] - If Needed - Billing Disposition and Condition Condition: STABLE Disposition: Home
--- NOTE | 2017-11-06 14:11 | RAD ---
INDICATION: Left lower posterior leg pain without injury. COMPARISON: There are no prior studies available for comparison. TECHNIQUE: Multiple real-time, color flow and Doppler tracings of the left lower extremity were obtained. FINDINGS: The common femoral, femoral, profunda femoral and popliteal veins all demonstrate normal compressibility, augmentation with compression and phasic response with respiration. The posterior tibial and peroneal veins demonstrate normal compressibility and augmentation with compression. There is a small cyst in the popliteal fossa most consistent with a Jacobo's cyst measuring 2.4 x 0.7 x 2.0 cm. IMPRESSION: 1. NO EVIDENCE FOR DEEP VENOUS THROMBOSIS. 2. SMALL BAKERS CYST.
== END 2017-11-06 14:37 | disposition home or self-care (01) ==
LOC: UCEAST 11:23
DX: M71.22 Synovial cyst of popliteal space [Baker], left knee (principal)
CPT/HCPCS: 99211; G0463

== ENCOUNTER 2018-03-30 12:25 | Emergency (ER) | payer MEDICARE, BC ==
[2018-03-30 12:59] VITALS: BP 125/79
--- NOTE | 2018-03-30 13:36 | UC ---
Lower Extremity/Ankle HPI - HPI Summary HPI Summary: 67-year-old female comes in complaining of left ankle pain after fall. Earlier this morning vision tripped and fell on a stone floor and injured her left ankle left hand and left ribs. The ankle swollen on the lateral aspect and that 's where it's tender she has been able to bear weight. Walking does make it worse rest makes it better. Left hand on the ulnar aspect also was injured in the fall. Fingers and wrist have full range of motion and the pain is somewhat gone in the hand and the patient is not worried about a fracture the hand. Also has left-sided rib pain is worse with taking a deep breath better with rest. Denies shortness of breath at rest. Denies any abdominal pain neck pain head pain. - History of Current Complaint Chief Complaint: UCLowerExtremity Stated Complaint: FOOT AND RIB INJURY Time Seen by Provider: 03/30/18 13:23 Pain Intensity: 8 - Allergies/Home Medications Allergies/Adverse Reactions: Allergies Allergy/AdvReac Type Severity Reaction Status Date / Time No Known Allergies Allergy Verified 03/30/18 12:59 Home Medications: Home Medications Calcium Carbonate/Vitamin D3 [Calcium 1000 + D] 1 tab PO 03/30/18 [History] PMH/Surg Hx/FS Hx/Imm Hx Previously Healthy: Yes - Surgical History Surgical History: Yes Surgery Procedure, Year, and Place: nasal reconstruction. tonsils. breast biopsy - Family History Known Family History: Positive: Other - Patient denies relevant FHx - Social History Alcohol Use: Rare Substance Use Type: None Smoking Status (MU): Never Smoked Tobacco Type: Cigarettes When Did the Patient Quit Smoking/Using Tobacco: smoked in youth Review of Systems Constitutional: Negative Skin: Negative Eyes: Negative ENT: Negative Respiratory: Negative Cardiovascular: Chest Pain - see hpi Gastrointestinal: Negative Motor: Negative Neurovascular: Negative Musculoskeletal: Other: - see hpi Neurological: Negative Psychological: Negative Is Patient Immunocompromised?: No All Other Systems Reviewed And Are Negative: Yes Physical Exam Triage Information Reviewed: Yes Appearance: Well-Appearing, Well-Nourished, Pain Distress - mild with deep insiration and palpation of left ankle Vital Signs: Initial Vital Signs Temp 98.6 F 03/30/18 12:55 Pulse 76 03/30/18 12:55 Resp 18 03/30/18 12:55 BP 125/79 03/30/18 12:55 Pulse Ox 99 03/30/18 12:55 Vital Signs Reviewed: Yes Eye Exam: Normal Eyes: Positive: Conjunctiva Clear Neck exam: Normal Neck: Positive: Supple Respiratory: Positive: Lungs clear, Normal breath sounds, No respiratory distress, Other: - Tender to palpation left lateral ribs Cardiovascular: Positive: RRR Abdominal Exam: Normal Abdomen Description: Positive: Nontender, Soft, Other: - Abdomen is nontender to palpation Bowel Sounds: Positive: Present Musculoskeletal: Positive: Other: - Left hand has minimal tenderness over the fifth metacarpal. There is no deformity no ecchymosis fingers have full range of motion wrists is full range of motion. There is no swelling in the hand Left ankle is tender in the lateral malleolus there is also swelling at this spot. Achilles tendon is intact. The foot is nontender to palpation. Proximal to the ankle there is no tenderness the knee has full range of motion. Neurological Exam: Normal Neurological: Positive: Alert, Muscle Tone Normal Psychological Exam: Normal Psychological: Positive: Age Appropriate Behavior Skin Exam: Normal Lower Extremity Course/Dx - Course Course Of Treatment: Order Information: ANKLE LEFT 3+VWS. Accession Number: [id number]. CPT: 68945. Indication: Left ankle injury with pain and swelling. 3 views of left ankle demonstrate soft tissue swelling laterally. There is no fracture or. dislocation. Ankle mortise is intact. IMPRESSION: Soft tissue swelling laterally without fracture. Ankle mortise is intact. . <Electronically signed by Courtney Simmons MD in OV> 03/30/18 [id number]. I discussed the x-ray results with the patient. The plan is an Angelo wrap and gel splint and she has her own cane and walker at home which which she will use. Patient declined x-rays of her ribs or hand. Sending her home with an incentive spirometer for the ribs. Pain control with ibuprofen. Follow up with her primary care doctor or return here if worse. - Differential Dx/Diagnosis Provider Diagnoses: LEFT ANKLE SPRAIN. LEFT RIB CONTUSION. LEFT HAND CONTUSION Discharge - Sign-Out/Discharge Documenting (check all that apply): Patient Departure All imaging exams completed and their final reports reviewed: Yes - Discharge Plan Condition: Stable Disposition: HOME Patient Education Materials: Ankle Sprain (ED), Rib Contusion (ED), Hand Sprain (ED) Referrals: Thu Pascual MD [Primary Care Provider] - Additional Instructions: FOLLOW UP WITH YOUR DOCTOR IF NOT COMPLETELY IMPROVED. GET RECHECKED FOR ANY WORSENING OF YOUR CONDITION OR QUESTIONS OR CONCERNS. - Billing Disposition and Condition Condition: STABLE Disposition: Home
--- NOTE | 2018-03-30 13:57 | RAD ---
Indication: Left ankle injury with pain and swelling. 3 views of left ankle demonstrate soft tissue swelling laterally. There is no fracture or dislocation. Ankle mortise is intact. IMPRESSION: Soft tissue swelling laterally without fracture. Ankle mortise is intact.
== END 2018-03-30 15:00 | disposition home or self-care (01) ==
LOC: UCEAST 12:25
DX: S93.402A Sprain of unspecified ligament of left ankle, initial encounter (principal); S20.212A Contusion of left front wall of thorax, initial encounter; S60.222A Contusion of left hand, initial encounter; W01.0XXA Fall on same level from slipping, tripping and stumbling without subsequent striking against object, initial encounter; Y92.9 Unspecified place or not applicable
CPT/HCPCS: 99213; G0463

== ENCOUNTER 2019-12-21 08:16 | Inpatient (IN) ==
[2019-12-21] MEDS ORDERED: NS 0.9% 1000 ml BAG 1,000 ML IV ONE (08:27)
[2019-12-21] MEDS ORDERED: Ondansetron 4 mg VIAL 2 MG/ML 2 ml VIAL IV ONE (08:29)
[2019-12-21] MEDS ORDERED: fentaNYL 100 mcg/2 ml 50 MCG/ML VIAL IV SLOW PU ONE ×2 (08:30→08:42)
[2019-12-21 08:43] LABS: ABS Eosinophils 0.2 10^3/ul (0-0.6); ABS Lymphocytes 1.8 10^3/ul (1.0-4.8); ABS Monocytes 0.4 10^3/ul (0-0.8); Hematocrit 44 % (35-47); Hemoglobin 14.7 g/dL (12.0-16.0); Lymphocyte % 38.4 %; Mean Corpuscular HGB Conc 34 g/dL (31-36); Mean Corpuscular Hemoglobin 31 pg (27-31); Mean Corpuscular Volume 91 fL (80-97); Mean Platelet Volume 9.7 fL (7.4-10.4); Nucleated Red Blood Cells % 0.1; Platelet Count 151 10^3/uL (150-450); Red Blood Count 4.78 10^6 /uL (3.70-4.87); Red Cell Distribution Width 13 % (10-15); White Blood Count 4.8 10^3/uL (3.5-10.8)
[2019-12-21 10:10] LABS: Calcium 8.9 mg/dL (8.6-10.3); EGFR African American 93.3 (>60); EGFR Non-African American 77.1 (>60); Potassium 3.6 mmol/L (3.5-5.0)
[2019-12-21 10:11] LABS: INR 0.98 (0.82-1.09)
[2019-12-21] MEDS ORDERED: Silver Sulfadiazine 1% 400gm JAR TOPICAL ONE (10:11)
[2019-12-21] MEDS ORDERED: Neomycin/Polym/Bacit TOP OINT 15 GM TOPICAL ONE (10:18)
[2019-12-21] MEDS ORDERED: Neosporin TOPICAL OINT PACKET TOPICAL ONE (11:00)
[2019-12-21] MEDS ORDERED: oxyCODONE/Acetamin 5/325 mg TAB PO PRN (12:17)
[2019-12-21] MEDS ORDERED: Enoxaparin 40 MG/0.4 ML SYR SUBCUT SCH (13:00)
[2019-12-22 05:33] LABS: ABS Eosinophils 0.1 10^3/ul (0-0.6); ABS Lymphocytes 0.7 10^3/ul (1.0-4.8); ABS Monocytes 0.5 10^3/ul (0-0.8); Hematocrit 41 % (35-47); Lymphocyte % 12.2 %; Mean Corpuscular HGB Conc 34 g/dL (31-36); Mean Corpuscular Hemoglobin 31 pg (27-31); Mean Corpuscular Volume 90 fL (80-97); Mean Platelet Volume 9.7 fL (7.4-10.4); Nucleated Red Blood Cells % 0.2; Platelet Count 123 10^3/uL (150-450); Red Blood Count 4.55 10^6 /uL (3.70-4.87); Red Cell Distribution Width 13 % (10-15); White Blood Count 5.7 10^3/uL (3.5-10.8)
[2019-12-22 05:45] LABS: INR 1.08 (0.82-1.09)
[2019-12-22 05:49] LABS: BUN/Creatinine Ratio 22.9 (8-20); Calcium 8.5 mg/dL (8.6-10.3); EGFR Non-African American 83.5 (>60); Potassium 3.7 mmol/L (3.5-5.0)
[2019-12-22] MEDS: Silver Sulfadiazine 1% 20 gm TUBE TOPICAL SCH (08:30)
[2019-12-22] MEDS: Lactated Ringers 1000 ml BAG 1,000 ML IV SCH ×2 (11:23→22:10)
[2019-12-22] MEDS ORDERED: ROPIVACAINE 5 MG/ML 30 ML BTL (0.5%) ONE (16:39)
[2019-12-22] MEDS ORDERED: Propofol 10 MG/ML 50 ML BTL ONE (16:39)
[2019-12-22] MEDS ORDERED: Dexamethasone IV 4 MG/ML VIAL 1 ml VIAL ONE (16:39)
[2019-12-22] MEDS ORDERED: Dexmedetomidine 200 mcg/2 ml 2 ml VIAL (200 mcg) ONE (16:39)
[2019-12-22] MEDS ORDERED: Midazolam 2 mg/2 ml VIAL 1 mg/ml 2 ml VIAL (2 mg) ONE (16:39)
[2019-12-22] MEDS ORDERED: Lidocaine 2% PF 5 ML VIAL ONE (16:39)
[2019-12-22] MEDS ORDERED: ceFAZolin 2 GM PREMIX 2 GM/50 ML BAG ONE (16:46)
[2019-12-22] MEDS ORDERED: Naloxone 0.4 mg VIAL 0.4 mg/ml 1 ml VIAL IV PRN (19:21)
[2019-12-22] MEDS ORDERED: DiMENhydriNATE IV 50 mg/ml 1 ml VIAL IV PUSH PRN (19:21)
[2019-12-22] MEDS ORDERED: fentaNYL 100 mcg/2 ml 50 MCG/ML VIAL IV PRN (19:21)
[2019-12-22] MEDS: Neomycin/Polym/Bacit TOP OINT 15 GM TOPICAL SCH (22:11)
[2019-12-23] MEDS: ceFAZolin 1 GM* X 3 DOSES POST-OP Q8H (AddVan) IVPB SCH ×2 (02:02→10:42)
[2019-12-23 05:56] LABS: ABS Lymphocytes 0.3 10^3/ul (1.0-4.8); ABS Monocytes 0.2 10^3/ul (0-0.8); Hematocrit 41 % (35-47); Mean Corpuscular HGB Conc 34 g/dL (31-36); Mean Corpuscular Hemoglobin 31 pg (27-31); Mean Corpuscular Volume 91 fL (80-97); Mean Platelet Volume 9.8 fL (7.4-10.4); Platelet Count 136 10^3/uL (150-450); Red Blood Count 4.57 10^6 /uL (3.70-4.87); Red Cell Distribution Width 13 % (10-15); White Blood Count 5.7 10^3/uL (3.5-10.8)
[2019-12-23 06:06] LABS: BUN/Creatinine Ratio 30.9 (8-20); Calcium 8.9 mg/dL (8.6-10.3); EGFR African American 104.4 (>60); EGFR Non-African American 86.3 (>60)
[2019-12-23] MEDS: Neomycin/Polym/Bacit TOP OINT 15 GM TOPICAL SCH (08:33)
[2019-12-23] MEDS: Silver Sulfadiazine 1% 20 gm TUBE TOPICAL SCH (08:33)
[2019-12-23 11:12] VITALS: BP 105/52
[2019-12-23] MEDS ORDERED: Enoxaparin 40 MG/0.4 ML SYR SUBCUT SCH (12:00)
== END 2019-12-23 17:05 | disposition home or self-care (01) | DRG 494 ==
LOC: ED 08:16 → SSU 12:13
PROVIDERS: ADMIT Internal Medicine; ATTEND Internal Medicine